=== PATIENT | male | born 1975 ===

== ENCOUNTER 2020-09-18 13:57 | Emergency (ER) | payer OTHER ==
[2020-09-18 15:37] LABS: HEMOGLOBIN 16.8 gm/dl (14.0-17.5); RED BLOOD COUNT 6.18 M/UL (4.20-5.50)
[2020-09-18 16:31] LABS: BUN/CREATININE RATIO 14 (0-10)
[2020-09-18] MEDS ORDERED: ZOFRAN ODT 4 MG4 MG SL (17:42)
[2020-09-18] MEDS ORDERED: PEDIALYTE1000 ML PO (17:43)
[2020-09-19] MEDS ORDERED: OMEPRAZOLE20 MG PO (09:10)
[2020-09-19] MEDS ORDERED: ATORVASTATIN CA10 MG PO (09:10)
== END 2020-09-18 18:00 | disposition home or self-care (01) ==
LOC: ER1 13:57
PROVIDERS: Physician Assistant
DX: K52.9 Noninfective gastroenteritis and colitis, unspecified (principal)
CPT/HCPCS: 80053; 81001; 82150; 83690; 85025; 99284; J7030; Q9967

== ENCOUNTER 2020-09-19 05:14 | Observation (INO) | payer OTHER ==
[~2020-09-19] VITALS: Ht 188 cm; Wt 113.9 kg
[~2020-09-19 05:14] MED LIST: PEDIALYTE1000 ML PO; ZOFRAN ODT 4 MG4 MG SL
[2020-09-19 06:26] LABS: HEMOGLOBIN 16.1 gm/dl (14.0-17.5); RED BLOOD COUNT 6.03 M/UL (4.20-5.50); WHITE BLOOD COUNT 8.7 K/UL (4.5-11.0)
[2020-09-19 06:41] LABS: BUN/CREATININE RATIO 13 (0-10)
[2020-09-19] MEDS ORDERED: ATORVASTATIN CA10 MG PO (09:10)
[2020-09-19] MEDS ORDERED: OMEPRAZOLE20 MG PO (09:10)
[2020-09-19 17:46] LABS: ADENOVIRUS F 40/41 Not Detected (Negative); ASTROVIRUS Not Detected (Negative); CAMPYLOBACTER Not Detected (Negative); CLOSTRIDIUM DIFFICILE TOX A/B Not Detected (Negative); CRYPTOSPORIDIUM Not Detected (Negative); E.COLI 0157 Not Detected (Negative); ENTAMOEBA HISTOLYTICA Not Detected (Negative); ENTEROAGGREGATIVE E.COLI (EAEC Not Detected (Negative); ENTEROPATHOGENIC E.COLI (EPEC) Not Detected (Negative); ENTEROTOXIGENIC E.COLI (ETEC) Not Detected (Negative); GIARDIA LAMBLIA Not Detected (Negative); PLESIOMONAS SHIGELLOIDES Not Detected (Negative); ROTOVIRUS A Not Detected (Negative); SALMONELLA Not Detected (Negative); SAPOVIRUS Not Detected (Negative); SHIG/ENTEROINVAS.ECOLI (EIEC) Not Detected (Negative); SHIGA-LIK TOX.PRO.E.COLI (STEC Not Detected (Negative); VIBRIO Not Detected (Negative); VIBRIO CHOLERAE Not Detected (Negative); YERSINIA ENTEROCOLITICA Not Detected (Negative)
--- NOTE | 2020-09-19 19:30 | NUR ---
PATIENT HAD QUESTIONS REGARDING TESTING. LANGUAGE LINE ACCESSED ACCESS CODE [id number]. SPOKE WITH KATIE AND THE PATIENT OVER THE SPEAKER PHONE. NO REFERENCE NUMBER GIVEN FOR THE CALL. PATIENT EDUCATED REGARDING GI BIOFIRE AND NEW IVFS AND DIET.
[2020-09-19 19:35] LABS: NOROVIRUS GI/GII DETECTED (Negative)
[2020-09-20 03:08] LABS: RED BLOOD COUNT 5.28 M/UL (4.20-5.50); WHITE BLOOD COUNT 6.3 K/UL (4.5-11.0)
[2020-09-20 03:31] LABS: BUN/CREATININE RATIO 9 (0-10)
== END 2020-09-21 14:00 | disposition home or self-care (01) ==
LOC: ER1 05:14 → CDU 08:22 → M/S 08:22 → CDU 08:22 → M/S 10:10
PROVIDERS: Family Medicine; Physician Assistant Medical; ADMIT Internal Medicine Infectious Disease
DX: A08.39 Other viral enteritis (principal); E78.5 Hyperlipidemia, unspecified; K21.9 Gastro-esophageal reflux disease without esophagitis; Z20.822 Contact with and (suspected) exposure to COVID-19; Z79.899 Other long term (current) drug therapy
CPT/HCPCS: 36415; 74018; 80048; 80053; 81001; 83690; 83735; 85025; 85027; 87507; 96374; 96375; 96376; 99285; G0378; J2270; J2405; J3480; J7121; U0002